=== PATIENT | female | born 1940 | race American Indian/Alaskan Native ===

== ENCOUNTER 2020-03-23 08:21 | Outpatient (CLI) | payer MEDICARE ==
--- NOTE | 2020-03-23 12:44 | Nuclear Medicine Report ---
NM bone scan whole body INDICATION / CLINICAL INFORMATION: Bone lesions.. TRACER: Technetium 99m MDP 25.3 mCi IV injection. COMPARISON: No relevant prior imaging study available. FINDINGS: Volume injection of the above tracer and appropriate delay, whole body imaging was performed in the a nterior posterior projections. Localized Tracer uptake is seen at the left pelvis extending from the ileum into the issue a.m. Degen erative uptake is seen at the AC joints, knees and feet. Previous right knee prosthesis placement is noted. Evaluation of the lower thoracic and lumbar spine demonstrates mild uptake which is nonspecific. IMPRESSION: 1. Uptake left pelvis. Differential diagnosis includes patches disease and tumor. Plain film correlat ion is recommended. 2. Nonspecific uptake at the lumbar spine is favored to be degenerative. This could be more completel y evaluated with MRI as clinically indicated. 3. Multifocal degenerative uptake. Signer Name: Dorian Flynn MD Signed: 03/23/2020 12:39 PM Workstation Name: [id number]
== END 2020-03-23 08:22 | disposition home or self-care (01) ==
LOC: NM 08:21
PROVIDERS: ATTEND Surgery
DX: M85.88 Other specified disorders of bone density and structure, other site (principal); M17.11 Unilateral primary osteoarthritis, right knee; Z96.651 Presence of right artificial knee joint
CPT/HCPCS: 78306; A9503

== ENCOUNTER 2020-03-28 11:26 | Outpatient (CLI) | payer MEDICARE ==
--- NOTE | 2020-03-28 12:12 | XRay Report ---
BILATERAL HIPS 2 VIEWS WITH PELVIS INDICATION: PAGETTES DISEASE. COMPARISON: None. IMPRESSION: There is increased density and trabecular pattern of the left hemipelvis compared to the right consistent with Paget's disease. No evidence for suspicious bone lesion or fracture. Mild ost eoarthritic changes are identified at both hips. No evidence for osteonecrosis. The soft tissues are unremarkable. Signer Name: Theodore Del Cid Jr, MD Signed: 03/28/2020 12:07 PM Workstation Name: [id number]
== END 2020-03-28 11:27 | disposition home or self-care (01) ==
LOC: XRAY 11:26
PROVIDERS: ATTEND Surgery
DX: M16.0 Bilateral primary osteoarthritis of hip (principal); M88.88 Osteitis deformans of other bones
CPT/HCPCS: 73521

== ENCOUNTER 2020-09-15 07:01 | Emergency (ER) | payer MEDICARE ==
[2020-09-15 08:24] LABS: Basophils % (Auto) 0.5 % (0.0-1.8); Eosinophils % (Auto) 0.8 % (0.0-4.3); Hematocrit 35.3 % (30.3-42.9); Hemoglobin 12.2 gm/dl (10.1-14.3); Lymphocytes # (Auto) 1.6 K/mm3 (1.2-5.4); Lymphocytes % (Auto) 35.3 % (13.4-35.0); Mean Corpuscular HGB Conc 35 % (30-34); Mean Corpuscular Volume 93 fl (79-97); Monocytes # (Auto) 0.3 K/mm3 (0.0-0.8); Monocytes % (Auto) 5.5 % (0.0-7.3); Platelet Count 166 K/mm3 (140-440); Red Blood Count 3.78 M/mm3 (3.65-5.03); Red Cell Distribution Width 13.6 % (13.2-15.2)
[2020-09-15] MEDS ORDERED: MORPHINE 4 MG/1 ML INJ IV ONE (08:41)
[2020-09-15] MEDS ORDERED: ONDANSETRON 4 MG/2 ML INJ IV ONE (08:41)
[2020-09-15 08:47] LABS: Alanine Aminotransferase 13 units/L (7-56); Albumin 4.1 g/dL (3.9-5); BUN/Creatinine Ratio 16; Blood Urea Nitrogen 14 mg/dL (7-17); Calcium 9.9 mg/dL (8.4-10.2)
--- NOTE | 2020-09-15 08:47 | Emergency Department Report ---
ED Abdominal Pain HPI - General Chief Complaint: Abdominal Pain Stated Complaint: ABD PAIN Time Seen by Provider: 09/15/20 08:36 Source: patient Mode of arrival: Wheelchair Limitations: No Limitations - History of Present Illness Initial Comments: Chief complaint: "I have such a terrible pain. It feels as if I am giving ." HPI: This is a 79-year-old female with history of DVT, hypertension, GERD, asthma, lumbar degenerative disc disease who presents with severe right lower quadrant pain radiating to the right flank which began at midnight. Sharp intermittent pain 10 out of 10. Worse with movement. She has nausea. She felt warm. No previous history of kidney stones. Patient has history of ruptured disc in the lumbar spine. She has refused surgery although recommended. Ibuprofen helps back pain. She is afraid to take this medicine due to risk of ulcer disease. MD Complaint: abdominal pain, flank pain -: Gradual, Last night (Midnight) Location: RLQ Radiation: R flank Migration to: R flank Severity scale (0 -10): 10 Quality: sharp Consistency: colicky Improves With: nothing Worsens With: movement Associated Symptoms: nausea - Related Data Previous Rx's Medication Instructions Recorded Last Taken Type Cyclobenzaprine [Flexeril] 10 mg PO TID PRN #20 tablet 09/15/20 Unknown Rx Ibuprofen [Motrin 400 MG tab] 400 mg PO Q8H PRN #15 tablet 09/15/20 Unknown Rx Allergies Allergy/AdvReac Type Severity Reaction Status Date / Time Iodine and Iodide Containing AdvReac Itching Verified 09/15/20 09:27 Produc shellfish derived AdvReac Hives Verified 09/15/20 09:27 ED Review of Systems ROS: Stated complaint: ABD PAIN Other details as noted in HPI Comment: All other systems reviewed and negative Constitutional: denies: fever, malaise Respiratory: denies: cough, shortness of breath Cardiovascular: denies: chest pain Gastrointestinal: abdominal pain. denies: nausea, vomiting, diarrhea Musculoskeletal: back pain ED Past Medical Hx - Past Medical History Previous Medical History?: Yes Hx Hypertension: Yes Hx Diabetes: Yes Hx GERD: Yes Hx Asthma: Yes - Surgical History Past Surgical History?: Yes Additional Surgical History: hyst, ruptured uterus, tom knee surgery, cataract surgery - Social History Smoking Status: Never Smoker Substance Use Type: None - Medications Home Medications: Home Medications Medication Instructions Recorded Confirmed Last Taken Type Cyclobenzaprine [Flexeril] 10 mg PO TID PRN #20 tablet 09/15/20 Unknown Rx Ibuprofen [Motrin 400 MG tab] 400 mg PO Q8H PRN #15 tablet 09/15/20 Unknown Rx ED Physical Exam - General Limitations: No Limitations General appearance: alert, in no apparent distress - Head Head exam: Present: atraumatic, normocephalic - Eye Eye exam: Present: normal appearance - ENT ENT exam: Present: mucous membranes moist - Neck Neck exam: Present: normal inspection, full ROM - Respiratory Respiratory exam: Present: normal lung sounds bilaterally. Absent: respiratory distress, wheezes, rales, rhonchi - Cardiovascular Cardiovascular Exam: Present: regular rate, normal rhythm, normal heart sounds. Absent: systolic murmur, diastolic murmur, rubs, gallop - GI/Abdominal GI/Abdominal exam: Present: soft, normal bowel sounds. Absent: distended, tenderness, guarding, rebound - Extremities Exam Extremities exam: Present: normal inspection - Back Exam Back exam: Present: normal inspection. Absent: full ROM, tenderness, CVA tenderness (L), muscle spasm, paraspinal tenderness, vertebral tenderness, rash noted - Neurological Exam Neurological exam: Present: alert, oriented X3 - Psychiatric Psychiatric exam: Present: normal affect, normal mood - Skin Skin exam: Present: warm, dry, intact, normal color. Absent: rash ED Course Vital Signs 09/15/20 07:24 Temperature 98.4 F Pulse Rate 59 L Respiratory 16 Rate Blood Pressure 142/63 O2 Sat by Pulse 100 Oximetry ED Medical Decision Making - Lab Data Result diagrams: 09/15/20 08:09 09/15/20 08:09 Laboratory Results - last 24 hr 09/15/20 09/15/20 08:09 08:09 WBC 4.6 RBC 3.78 Hgb 12.2 Hct 35.3 MCV 93 MCH 32 MCHC 35 H RDW 13.6 Plt Count 166 Lymph % (Auto) 35.3 H [place] % (Auto) 5.5 Eos % (Auto) 0.8 Baso % (Auto) 0.5 Lymph # (Auto) 1.6 [place] # (Auto) 0.3 Eos # (Auto) 0.0 Baso # (Auto) 0.0 Seg Neutrophils % 57.9 Seg Neutrophils # 2.7 Sodium 143 Potassium 3.9 Chloride 102.8 Carbon Dioxide 30 Anion Gap 14 BUN 14 Creatinine 0.9 Estimated GFR > 60 BUN/Creatinine Ratio 16 Glucose 175 H Calcium 9.9 Total Bilirubin 0.30 AST 26 ALT 13 Alkaline Phosphatase 107 Total Protein 6.6 Albumin 4.1 Albumin/Globulin Ratio 1.6 - Radiology Data Radiology results: report reviewed Patient Name: USHA ALFORD Gender: Female Date of : 1940 Referring Provider: SYD TOBIN Organization: [facility] Accession Number: [id number] Requested Date: September 15, 2020 08:42 Report Status: Final Requested Procedure: 1 Procedure Description: CT abdomen pelvis wo con Modality: CT Findings Reporting MD: Braeden Medeiros Dictation Time: September 15, 2020 08:17 Behavioral Pediatrician: Not available Sole Polisher Date: CT ABDOMEN AND PELVIS WITHOUT CONTRAST HISTORY: Right lower quadrant pain right flank pain. COMPARISON: None. TECHNIQUE: CT images of the abdomen and pelvis were obtained without administration of intravenous contrast. All CT scans at this location are performed using CT dose reduction for [employer] by means of automated exposure control. FINDINGS: Lungs/bones: Lung bases are clear Abdomen/pelvis: Within limits of a noncontrast examination the liver, spleen, adrenal glands, pancreas and upper GI tract appear normal. Visualized portions of the gallbladder appear normal. Small hypodensity within the right hepatic lobe could represent a cyst however too small to characterize. This area measures 6 mm. Atherosclerotic changes seen throughout the aorta. No definite renal stones. No hydronephrosis. There is an umbilical hernia containing fat. No bowel obstruction is seen. No CT evidence for appendicitis. Mild constipation throughout the colon. Left renal cyst is noted. No ureteral stones are seen. Degenerative change in bilateral hips. Degenerative change throughout spine there is increased sclerosis and bone marrow changes throughout the left iliac bone and superior and inferior pubic rami. IMPRESSION: 1. Diffuse sclerosis and irregularity throughout the left hemipelvis. Findings could be seen in Pagets disease however nonspecific. 2. No renal or ureteral stones are seen. No CT evidence for appendicitis. Signer Name: Braeden Medeiros MD Signed: 09/15/2020 8:17 AM Workstation Name: [employer] - Medical Decision Making 1. Acute exacerbation of chronic back pain: Patient has history of lumbar degenerative disc disease. Spine surgery has been recommended in the past. No evidence of obstructing ureteral stone or appendicitis. No evidence of acute inflammatory Process in the abdomen pelvis according to CT scan. Patient has normal physical exam. Prescribed ibuprofen Flexeril. Given IV and p.o. analgesia emergency department. Discharged home. Referred to spinal surgeon. Critical care attestation.: If time is entered above; I have spent that time in minutes in the direct care of this critically ill patient, excluding procedure time. ED Disposition Clinical Impression: Acute right flank pain, Degenerative disc disease, lumbar, Paget's disease Disposition: - TO HOME OR SELFCARE Is pt being admited?: No Does the pt Need Aspirin: No Condition: Stable Instructions: Abdominal Pain (ED), Degenerative Disk Disease, Flank Pain, Adult, [id number] Prescriptions: Cyclobenzaprine [Flexeril] 10 mg PO TID PRN #20 tablet PRN Reason: Muscle Spasm Ibuprofen [Motrin 400 MG tab] 400 mg PO Q8H PRN #15 tablet PRN Reason: Pain , Severe (7-10) Referrals: LEVI CHAMBERS II, MD [Staff Physician] - 3-5 Days
--- NOTE | 2020-09-15 09:22 | Cat Scan Report ---
CT ABDOMEN AND PELVIS WITHOUT CONTRAST HISTORY: Right lower quadrant pain right flank pain. COMPARISON: None. TECHNIQUE: CT images of the abdomen and pelvis were obtained without administration of intravenous co ntrast. All CT scans at this location are performed using CT dose reduction for [employer] by means of au tomated exposure control. FINDINGS: Lungs/bones: Lung bases are clear Abdomen/pelvis: Within limits of a noncontrast examination the liver, spleen, adrenal glands, pancre as and upper GI tract appear normal. Visualized portions of the gallbladder appear normal. Small hypo density within the right hepatic lobe could represent a cyst however too small to characterize. This area measures 6 mm. Atherosclerotic changes seen throughout the aorta. No definite renal stones. No hydronephrosis. There is an umbilical hernia containing fat. No bowel ob struction is seen. No CT evidence for appendicitis. Mild constipation throughout the colon. Left isidra l cyst is noted. No ureteral stones are seen. Degenerative change in bilateral hips. Degenerative change throughout spine there is increased sclero sis and bone marrow changes throughout the left iliac bone and superior and inferior pubic rami. IMPRESSION: 1. Diffuse sclerosis and irregularity throughout the left hemipelvis. Findings could be seen in Paget s disease however nonspecific. 2. No renal or ureteral stones are seen. No CT evidence for appendicitis. Signer Name: Braeden Medeiros MD Signed: 09/15/2020 9:17 AM Workstation Name: [email or web address]
[2020-09-15] MEDS: IBUPROFEN 800 MG TAB PO ONE ×2 (09:27→09:28)
[2020-09-15 10:21] VITALS: BP 164/70
== END 2020-09-15 10:21 | disposition home or self-care (01) ==
LOC: ED 07:01
DX: M51.36 Other intervertebral disc degeneration, lumbar region (principal); M88.88 Osteitis deformans of other bones; R10.31 Right lower quadrant pain; I10 Essential (primary) hypertension; E11.9 Type 2 diabetes mellitus without complications; K21.9 Gastro-esophageal reflux disease without esophagitis; J45.909 Unspecified asthma, uncomplicated; Z98.890 Other specified postprocedural states; Z79.899 Other long term (current) drug therapy; Z91.013 Allergy to seafood; Z88.8 Allergy status to other drugs, medicaments and biological substances
CPT/HCPCS: 36415; 74176; 80053; 85025; 96374; 96375; 99285; J2270; J2405